=== PATIENT | female | born 1940 | race Caucasian/White ===

== ENCOUNTER 2018-02-06 10:00 | Inpatient (IN) ==
[2018-03-13] MEDS ORDERED: Sodium Chlor 0.9% Inj 500 ML IV.CONT ONE (08:00)
[2018-03-13] MEDS ORDERED: Chlorhexidine Gluconate 2% 1 Pack (2 Cloths) TOPICAL ONE (08:00)
[2018-03-13] MEDS ORDERED: Vancomycin Inj 1,000 MG in Sodium Chlor 0.9% Inj 250 ML IV.SIG SCH (08:00)
[2018-03-13] MEDS ORDERED: ceFAZolin 2 GM Premix Inj 2 GM/50 ML PIGGYBACK IV.SIG SCH (08:00)
[2018-03-13] MEDS ORDERED: Metoprolol Tartrate 25 MG Tablet PO ONE (08:00)
[2018-03-13] MEDS ORDERED: Chlorhexidine 4% Topical 120 APPLIC/120 ML Bottle TOPICAL SCH (08:00)
[2018-03-13] MEDS ORDERED: Dexamethasone Inj 20 MG/5 ML Vial IV.PUSH SCH (08:00)
[2018-03-13] MEDS ORDERED: Bupivacaine Liposomal PF 1.3% Inj 20 ML Vial ONE (08:41)
[2018-03-13] MEDS ORDERED: Sodium Chlor 0.9% Inj 73.07 ML, Ropivacaine 0.5% PF Inj 24.63 ML, Ketorolac Inj 30 MG, ... P-ARTICULR SCH ×5 (09:00)
[2018-03-13] MEDS ORDERED: Tranexamic Acid Inj 1,025 MG in Sodium Chlor 0.9% Inj 100 ML IV.SIG SCH (09:00)
[2018-03-13] MEDS ORDERED: Famotidine PF Inj 20 MG/2 ML Vial ONE (09:41)
[2018-03-13] MEDS ORDERED: fentaNYL Citrate Inj 100 MCG/2 ML Ampul ONE (09:41)
[2018-03-13] MEDS ORDERED: fentaNYL Citrate Inj 250 MCG/5 ML Ampul ONE (09:41)
[2018-03-13] MEDS ORDERED: Aluminum/Magnesium/Simethacone Susp 30 ML UDC PO PRN (12:10)
[2018-03-13] MEDS ORDERED: Bisacodyl 10 MG Supp RECTAL PRN (12:10)
[2018-03-13] MEDS ORDERED: Post-op Orders (for Pharmacy) OTHER STA (12:10)
[2018-03-13] MEDS ORDERED: Morphine Inj 4 MG/ML Vial IV.PUSH PRN (12:10)
--- NOTE | 2018-03-13 12:13 | P.OP ---
- Preoperative Diagnosis (1) Osteoarthritis of right knee - Postoperative Diagnosis (1) Osteoarthritis of right knee Date of procedure: 03/13/18 Procedure: Right total knee arthroplasty Anesthesia: [facility], [facility] Surgeon: Rogelio Blas MD Operation and Findings: IMPLANTS: DePuy Attune: Patella: size 35. Femur, posterior stabilized size 7. Tibia, rotating platform size 6. Tibial insert, rotating platform, posterior stabilized size 10 mm thickness. ESTIMATED BLOOD LOSS: 100 cc TOURNIQUET TIME: 43 minutes at 250 mmHg pressure. JUSTIFICATION FOR PROCEDURE: The patient has end-stage osteoarthritis to the knee. There is an attached conservative measures pathway form in the chart that describes the nonoperative measures that were undertaken prior to consideration of surgical management. The patient understood the risks and benefits of surgical management. See my office notes for further details PROCEDURE: The patient was brought back to the operative theatre. Adequate anesthesia was obtained. The patient received intravenous vancomycin and Ancef. The lower extremity was prepped and draped in the usual sterile fashion.The leg was exsanguinated, the tourniquet was raised. A standard anterior incision was performed followed by medial parapatellar arthrotomy was performed. End-stage arthritis was identified. Osteotomy of the patella was performed. We drilled holes for the patella. We trialed the patella component. We placed an intramedullary guide into the distal femur. We ultimately resected 13 mm off of the distal femur in 5 degrees of valgus. The remnants of the ACL and PCL were resected. Osteotomy of the proximal tibia was performed, resecting 5 mm off of the medial side. This was done with 3 degrees of posterior slope using an extramedullary guide. The distal end of the guide was placed in the mid aspect of the ankle. The femur was sized, and four chamfer cuts were completed in 3 of external rotation. We then cut the central box in the distal femur to replace the PCL. We resected the remnants of the menisci and removed osteophytes off of the femur and tibia. We then trialed the knee. We punched the tibia for the keel, and then used standard technique to cement in components. Excess cement was removed. We trialed the knee again and the final polyethylene thickness was chosen to provide extension to 0 degrees, and flexion of 140 degrees to gravity. The ligaments were appropriately balanced. Lateral release was necessary to obtain excellent patellofemoral tracking. The tourniquet was released and adequate hemostasis was obtained. An intra- articular injection of a ropivacaine cocktail was injected. The posterior knee was inspected for excess cement, which was removed. The final polyethylene was put into position after thorough irrigation. We then closed deep fascia with a #2 Stratafix followed by skin with 2-0 Vicryl followed by Dermabond dressing. Postop plan is to weight-bear as tolerated. DVT prophylaxis will be performed with SCDs, TATA hose, early mobilization, and aspirin.
--- NOTE | 2018-03-13 12:42 | P.DCO ---
- Physical Therapy Physical Therapy: Gait training, Transfer training, bed to chair Knee: Total knee Right Lower Extremity Weight Bearing: Weight bearing as tolerated Right Lower Extremity Range of Motion: Active ROM - Nursing Dressing changes: Do not change dressing Additional instructions: First dressing change in the office - Certification Need for Home Health services: I have seen patient Donna Coreas on 03/13/18. My clinical findings support the need for the requested home health care services because: Need for Home Health Services: Limited ability to care for self, High risk of falls Homebound Certification: I certify that my clinical findings support that this patient is homebound because: Homebound Certification: Post-op weakness, Unsteady gait/balance
--- NOTE | 2018-03-13 12:57 | XR ---
EXAM DATE: 03/13/2018 12:52 PM EST AGE/SEX: 77 years / Female INDICATIONS: Post op right knee surgery. CLINICAL DATA: This is the patient's initial encounter. Patient reports that signs and symptoms have been present for 1 day and indicates a pain score of 0/10. MEDICAL/SURGICAL HISTORY: None. None. COMPARISON: No prior exams available for comparison. FINDINGS: Postsurgical changes are noted following knee replacement. Prosthetic components are well seated in s atisfactory alignment. Osseous structures are intact without evidence of acute fracture. CONCLUSION: Satisfactory postoperative appearance of the right knee status post replacement. Electronically signed by: Shashi Nathan MD 03/13/2018 12:55 PM EST
[2018-03-13] MEDS ORDERED: Tranexamic Acid Inj 1,025 MG in Sodium Chlor 0.9% Inj 100 ML IV.SIG ONE (13:00)
[2018-03-13] MEDS: Sod Chloride 0.9% Inj 1,000 ML IV.CONT SCH (14:25)
[2018-03-13] MEDS: ceFAZolin 1 GM Premix Inj 1 GM/50 ML FROZ.PIGGY IV.SIG SCH ×2 (16:26→21:16)
[2018-03-13] MEDS ORDERED: Zolpidem Tartrate 5 MG Tablet PO PRN (21:00)
[2018-03-13] MEDS: Senna/Docusate Sodium 8.6/50 MG Tablet PO SCH (21:15)
[2018-03-13] MEDS: Multivitamin/Minerals Therapeutic Tablet PO SCH (21:16)
[2018-03-14] MEDS: Sod Chloride 0.9% Inj 1,000 ML IV.CONT SCH (05:55)
[2018-03-14] MEDS: ceFAZolin 1 GM Premix Inj 1 GM/50 ML FROZ.PIGGY IV.SIG SCH (05:58)
[2018-03-14 06:47] LABS: Hematocrit 27.4 % (35.0-46.0); Hemoglobin 9.8 gm/dL (11.6-15.3)
--- NOTE | 2018-03-14 07:24 | P.PNOP ---
Subjective Interval history: The patient is resting comfortably in bed in no acute distress. The patient is having no pain to the right knee. The patient does want to go home today with home health after her class. Physical Exam Vital signs: Vital Signs 03/13/18 08:10 03/13/18 08:32 03/13/18 12:23 Temperature 97.3 F L 97.8 F Pulse Rate 60 60 68 Respiratory Rate 18 12 Blood Pressure 125/70 132/61 Pulse Oximetry 94 L 94 L 94 L 03/13/18 12:30 03/13/18 12:45 03/13/18 13:00 Temperature Pulse Rate 63 59 L 55 L Respiratory Rate 12 12 12 Blood Pressure 151/69 H 152/67 H 150/67 H Pulse Oximetry 91 L 96 98 03/13/18 13:15 03/13/18 13:30 03/13/18 14:30 Temperature Pulse Rate 54 L 55 L 53 L Respiratory Rate 12 12 12 Blood Pressure 151/67 H 154/70 H 137/63 Pulse Oximetry 98 99 96 03/13/18 16:30 03/13/18 17:42 03/13/18 20:00 Temperature 98.1 F 97.7 F 97.4 F L Pulse Rate 54 L 59 L 66 Respiratory Rate 12 18 18 Blood Pressure 139/60 139/65 143/63 H Pulse Oximetry 99 95 93 L 03/14/18 00:00 03/14/18 04:00 Temperature 97.9 F 97.9 F Pulse Rate 69 60 Respiratory Rate 18 18 Blood Pressure 128/60 108/53 L Pulse Oximetry 94 L 93 L Intake & Output 03/13/18 03/14/18 03/14/18 18:59 06:59 18:59 Intake Total 1490.25 / 1490.25 100 / 100 Output Total 100 / 100 Balance 1390.25 / 1390.25 100 / 100 Weight 102.5 kg 102.6 kg Intake: IV 460.25 / 460.25 100 / 100 Cyklokapron Inj 1,025 MG In NS 110.25 / 110.25 Inj 100 ML @ 200 mls/hr IV.SIG ONCE CHARLEEN Rx#:[id number] Vancomycin Inj 1,000 MG In NS 250 / 250 Inj 250 ML @ 250 mls/hr IV.SIG TRIM CARPENTER CHARLEEN Rx#:[id number] Ancef 1 GM Premix Inj 1 gm In 50 / 50 100 / 100 50 ml @ 100 mls/hr IV.SIG Q6H CHARLEEN Rx#:[id number] Ancef 2 GM Premix Inj 2 gm In 50 / 50 50 ml @ 100 mls/hr IV.SIG TRIM CARPENTER CHARLEEN Rx#:[id number] Oral 240 / 240 Anesthesia Amount 790 / 790 Output: Estimated Blood Loss 100 / 100 Other: # Voids 1 5 Date of Last Bowel Movement 03/13/18 Weight On Admission 102.5 kg Narrative: The patient's dressing is clean, dry, and intact. EHL/TA/G are intact. 2+ pedal pulse. The patient's calf is soft and nontender. Moderate swelling to the knee. Sensation is intact to light touch distally. Results - Labs CBC & Chem 7: 03/14/18 05:56 Laboratory Results - last 24 hr 03/13/18 03/13/18 03/14/18 08:15 21:12 05:56 Hgb 9.8 L Hct 27.4 L POC Glucose 260 H Blood Type O Positive Blood Type Recheck Required Antibody Screen Negative - Imaging Impressions Knee X-Ray 03/13/18 12:09 CONCLUSION: Satisfactory postoperative appearance of the right knee status post replacement. - Procedures Right total knee arthroplasty Assessment and Plan - Problem List (1) Status post total knee replacement, right Code(s): Z96.651 - Presence of right artificial knee joint Status: Acute (2) Osteoarthritis of right knee Code(s): M17.11 - Unilateral primary osteoarthritis, right knee Status: Acute - Assessment and Plan POD #1: [Right] total knee arthroplasty 1. Weightbearing as tolerated on [right] lower extremity. 2. Aspirin 81 mg twice daily for DVT prophylaxis. 3. Ice as needed for swelling. 4. Stable per ortho for discharge to home health today following her therapy class. 5. The patient will follow up with Dr. Blas and/or JEREMIAH Bar as previously scheduled.
[2018-03-14] MEDS ORDERED: Dexamethasone Inj 20 MG/5 ML Vial IV.PUSH ONE (08:00)
[2018-03-14] MEDS ORDERED: hydroCHLOROthiazide 25 MG Tablet PO SCH (09:00)
[2018-03-14] MEDS: Senna/Docusate Sodium 8.6/50 MG Tablet PO SCH (09:13)
[2018-03-14] MEDS: Multivitamin/Minerals Therapeutic Tablet PO SCH (09:21)
[2018-03-14 09:25] VITALS: BP 126/59; PULSE 58; RESP 20; TEMP 98; O2SAT 96
== END 2018-03-14 14:37 | disposition home health service (06) ==
LOC: HSDI 03-13 06:45 → N06 03-13 16:53
PROVIDERS: ADMIT Orthopaedic Surgery; ATTEND Orthopaedic Surgery